=== PATIENT | female | born 1960 | race Caucasian/White ===

== ENCOUNTER 2017-05-21 08:22 | Day surgery (SDC) | payer OTHER ==
[~2017-05-21] VITALS: Ht 167.6 cm; Wt 91.4 kg
[~2017-05-21 08:22] MED LIST: CYAN1TAB44 PO; CeFAZolin 2 GM/DEXTROSE 50 ML IV ONE; IBUP-2070 PO; MULT-959 PO; RINGERS SOLUTION,LACTATED 1,000 ML IV ONE
[2017-05-21] MEDS ORDERED: KETOROLAC TROMETHAMINE 60 MG/2 ML VIAL IM ONE (08:23)
[2017-05-21] MEDS ORDERED: GLYCOPYRROLATE 0.2 MG/ML VIAL IM ONE (08:23)
[2017-05-21] MEDS ORDERED: ONDANSETRON HCL 4 MG/2 ML VIAL IVP ONE (08:23)
[2017-05-21] MEDS ORDERED: PROPOFOL 1% 20 ML VIAL IVP ONE (08:23)
[2017-05-21] MEDS ORDERED: NEOSTIGMINE METHYLSULFATE 1 MG/ML 10 ML VIAL IVP ONE (08:23)
[2017-05-21] MEDS ORDERED: ESMOLOL HCL 10 MG/ML 10 ML VIAL IVP ONE (08:23)
[2017-05-21] MEDS ORDERED: DEXAMETHASONE SOD PHOS 4 MG/ML VIAL IVP ONE (08:23)
[2017-05-21] MEDS ORDERED: ROCURONIUM BROMIDE 10 MG/ML 5 ML VIAL IVP ONE (08:23)
[2017-05-21] MEDS ORDERED: MIDAZOLAM HCL 2 MG/2 ML VIAL IVP ONE (08:23)
[2017-05-21] MEDS ORDERED: LIDOCAINE HCL/PF 2% 5 ML VIAL IM ONE (08:23)
[2017-05-21] MEDS ORDERED: FentaNYL CITRATE-PF 250 MCG/5 ML VIAL IVP ONE (08:23)
[2017-05-21] MEDS ORDERED: METOCLOPRAMIDE HCL 5 MG/ML 2 ML VIAL IVP ONE (08:23)
[2017-05-21] MEDS ORDERED: RINGERS SOLUTION,LACTATED 1,000 ML IV ONE (08:30)
[2017-05-21 08:50] LABS: BASOPHILS % (AUTO) 0.9 % (0.0-2.0); EOSINOPHILS % (AUTO) 2.7 % (1.0-6.0); HEMATOCRIT 41.3 % (36-46); HEMOGLOBIN 14.1 g/dL (12.0-16.0); LYMPHOCYTES # (AUTO) 2.5 K/uL (1.0-4.8); LYMPHOCYTES % (AUTO) 35.9 % (22.0-44.0); MEAN CORPUSCULAR HEMOGLOBIN 32.1 pg (26.0-34.0); MEAN CORPUSCULAR HGB CONC 34.1 G/dL (31.0-37.0); MEAN CORPUSCULAR VOLUME 94 fL (80-100); MONOCYTES # (AUTO) 0.6 K/uL (0.1-1.0); MONOCYTES % (AUTO) 8.5 % (2.0-9.0); NEUTROPHILS # (AUTO) 3.7 K/uL (1.8-7.7); PLATELET COUNT (AUTO) 273 K/uL (150-450); RED BLOOD CELL COUNT(AUTO) 4.39 MIL/uL (4.00-5.20); RED CELL DISTRIBUTION WIDTH 12.6 % (11.5-14.5)
[2017-05-21 09:21] LABS: ALANINE AMINOTRANSFERASE 40 U/L (12-78); ALBUMIN 4.2 g/dL (3.4-5.0); ALKALINE PHOSPHATASE 82 U/L (46-116); ASPARTATE AMINOTRANSFERASE 19 U/L (15-37); BILIRUBIN,TOTAL 0.5 mg/dL (0.1-1.0); CALCIUM, TOTAL 9.6 mg/dL (8.8-10.5); CHLORIDE 104 mmol/L (98-107); CREATININE 0.69 mg/dL (0.60-1.30); GLOMERULAR FILTR. RATE CALC > 60 mL/min (>60); GLUCOSE,RANDOM 101 mg/dL (70-110); POTASSIUM 4.3 mmol/L (3.5-5.1); SODIUM SERUM 141 mmol/L (136-145); TOTAL PROTEIN, SERUM 7.8 g/dL (6.4-8.2); UREA NITROGEN, BLOOD 15 mg/dL (7-18)
[2017-05-21 09:29] LABS: ANION GAP 9 mmol/L (8-16); CARBON DIOXIDE 28 mmol/L (22-29)
[2017-05-21] MEDS ORDERED: ACETAMINOPHEN 1000 MG/ISO-OSM 100 ML IV ONE (10:11)
[2017-05-21] MEDS ORDERED: EPINEPHrine 1:1,000 [1 MG/ML] AMP ONE (10:30)
[2017-05-21] MEDS ORDERED: BUPIVACAINE HCL/PF 0.25% 30 ML VIAL ONE (10:30)
[2017-05-21] MEDS ORDERED: MEPERIDINE-PF 25 MG/ML SYRINGE IVP PRN (11:00)
[2017-05-21] MEDS ORDERED: FentaNYL CITRATE-PF 100 MCG/2 ML VIAL IVP PRN (11:00)
[2017-05-21] MEDS: HYDROmorphone 2 MG/ML SYRINGE IVP PRN ×2 (12:15→12:25)
[2017-05-21] MEDS ORDERED: HYDROmorphone 2 MG/ML SYRINGE ONE (12:16)
[2017-05-21] MEDS ORDERED: OXYGEN THERAPY IH SCH (20:00)
== END 2017-05-21 14:20 | disposition home or self-care (01) ==
LOC: SURGERY 08:22
PROVIDERS: ATTEND Orthopaedic Surgery
DX: M17.0 Bilateral primary osteoarthritis of knee (principal); M65.862 Other synovitis and tenosynovitis, left lower leg; M65.861 Other synovitis and tenosynovitis, right lower leg; S83.241A Other tear of medial meniscus, current injury, right knee, initial encounter; S83.242A Other tear of medial meniscus, current injury, left knee, initial encounter; S83.281A Other tear of lateral meniscus, current injury, right knee, initial encounter; S83.282A Other tear of lateral meniscus, current injury, left knee, initial encounter; M67.52 Plica syndrome, left knee; F12.21 Cannabis dependence, in remission; Z88.2 Allergy status to sulfonamides; Z90.49 Acquired absence of other specified parts of digestive tract; Z98.51 Tubal ligation status; Z72.89 Other problems related to lifestyle; Z87.891 Personal history of nicotine dependence; Z79.1 Long term (current) use of non-steroidal anti-inflammatories (NSAID); X58.XXXA Exposure to other specified factors, initial encounter; Y93.9 Activity, unspecified; Y92.9 Unspecified place or not applicable; Y99.9 Unspecified external cause status
CPT/HCPCS: 29880; 36415; 80053; 85025; 93005; J0131; J0171; J0690; J1100; J1170; J1885; J2250; J2405; J2704; J2765; J3010; J3490 ×5; J7120